=== PATIENT | female | born 1965 | race Caucasian/White ===

== ENCOUNTER → 2017-04-01 | Outpatient (CLI) | payer OTHER ==
[~2017-04-01] MED LIST: CIPRO500 MG PO; CUBICIN500 MG/10 IV; DIOVAN HCT 3201 EAC1 PO; DIOVAN40 MG PO; FORTAMET500 MG PO; GLIPIZIDE ER2.5 MG PO; HYDROXYZINE HCL25 MG PO; LASIX10 MG PO; LASIX20 MG PO; METFORMIN HCL1000 M1 PO; MICRO-K,K-DUR,10 MEQ PO; PROTONIX40 M1 PO; PROTONIX40 MG PO; PROZAC10 M1 PO; PROZAC40 MG PO; SIMVASTATIN20 MG PO; VITAMIN B-6100 MG PO; VITAMIN D250000 UNIT PO; WELCHOL625 MG PO
== END | disposition home or self-care (01) ==
LOC: NUC 13:37
DX: R06.02 Shortness of breath (principal)
CPT/HCPCS: 71020; 78582; A9540; A9567

== ENCOUNTER 2017-12-27 00:29 | Inpatient (IN) | payer OTHER ==
[~2017-12-27] VITALS: Ht 162.6 cm; Wt 187.5 kg
[~2017-12-27 00:29] MED LIST changes: +CYANOCOBALAM1000 MCG PO; -DIOVAN HCT 3201 EAC1 PO; +DIOVAN160 MG PO; -GLIPIZIDE ER2.5 MG PO; +GLIPIZIDE PO; -METFORMIN HCL1000 M1 PO; +METFORMIN HCL500 MG PO; -VITAMIN B-6100 MG PO; +VITAMIN D31000 UNIT PO
[2017-12-27 01:42] LABS: HEMATOCRIT 32.1 % (36.0-46.0); HEMOGLOBIN 9.9 G/DL (11.9-15.5); MCH 31.7 PG (29.0-34.0); MCHC 30.8 G/DL (30.0-36.0); MCV 102.9 FL (83-99); PLATELET COUNT 214 K/uL (156-360); RBC DIS.WIDTH-CV 13.1 % (11.8-14.6); RBC DIS.WIDTH-SD 48.2 % (39-53); RED BLOOD COUNT 3.12 M/uL (3.80-5.20); WHITE BLOOD COUNT 12.6 K/uL (4.1-10.2)
[2017-12-27 01:59] LABS: ALBUMIN 3.8 g/dL (3.2-4.8)
[2017-12-27 02:00] LABS: CHLORIDE 85 mEq/L (99-109); POTASSIUM 3.9 mEq/L (3.7-5.4); SODIUM 142 mEq/L (136-147)
[2017-12-27 02:02] LABS: GLUCOSE 220 mg/dL (70-99); TOTAL PROTEIN 7.3 g/dL (6.4-8.3)
[2017-12-27 02:04] LABS: TOTAL BILIRUBIN 0.4 mg/dL (0.0-1.0)
[2017-12-27 02:05] LABS: ALKALINE PHOSPHATASE 73 IU/L (3-129)
[2017-12-27 02:06] LABS: CREATININE 1.5 mg/dL (0.6-1.3); GFR ESTIMATE (CALCULATED) 39 mL/min/
[2017-12-27 02:07] LABS: AST (GOT) 13 IU/L (2-34); UREA NITROGEN (BUN) 30 mg/dL (9-23)
[2017-12-27 02:08] LABS: ALT (GPT) 17 IU/L (3-49)
[2017-12-27 02:09] LABS: LIPASE 93 U/L (1.0-51.0); TROP-I INTERPRETATION NEGATIVE; TROPONIN-I 0.01 ng/mL (0.0-0.30)
[2017-12-27 02:18] LABS: CARBON DIOXIDE (BICARBONATE) > 40.0 MEQ/L (20-31); VENOUS PCO2 88 mm Hg (41-51)
[2017-12-27 02:19] LABS: CARBON DIOXIDE (BICARBONATE) > 40.0 mEq/L (20-31)
[2017-12-27 04:00] LABS: BASE EXCESS 22.2 mEq/L (-3 to +3); BICARBONATE 53.4 mEq/L (22-26); CARBOXY HGB 1.9 % (0-5); PCO2 99 mm Hg (35-45); PO2 112 mm Hg (80-100); SITE RR; pH 7.34 (7.35-7.45)
[2017-12-27 04:01] LABS: COMMENTS - BLOOD GASES A+C+; DEVICE 840; FI02 60 %; MODE SPONT; PEEP 5 CM/H20; PRES. SUPPORT 10 CM/H2O; TOTAL RESP RATE 16 resp/min
[2017-12-27 10:51] VITALS: BP 125/60
[2017-12-27] MEDS ORDERED: HYDROCHLOROTHIA25 MG PO (14:33)
[2017-12-27] MEDS ORDERED: BYSTOLIC5 MG PO (14:41)
[2017-12-27 16:34] VITALS: BP 127/52
[2017-12-27 20:02] VITALS: BP 151/79
[2017-12-27 23:22] VITALS: BP 116/54
[2017-12-28 03:28] VITALS: BP 115/56
[2017-12-28 06:36] LABS: CHLORIDE 83 MEQ/L (99-109); CREATININE 1.2 MG/DL (0.6-1.3); GFR ESTIMATE (CALCULATED) 50 mL/min/; GLUCOSE 277 mg/dL (70-99); SODIUM 139 MEQ/L (136-147); UREA NITROGEN (BUN) 33 mg/dL (9-23)
[2017-12-28 06:58] LABS: CARBON DIOXIDE (BICARBONATE) > 40.0 MEQ/L (20-31)
[2017-12-28 08:10] VITALS: BP 147/68
[2017-12-28 12:04] VITALS: BP 119/58
[2017-12-28 15:35] VITALS: BP 141/64
[2017-12-28 20:07] VITALS: BP 128/60
[2017-12-28 23:28] VITALS: BP 144/67
[2017-12-29 03:15] VITALS: BP 133/64
[2017-12-29 05:58] LABS: BASOPHIL (%) 0.1 % (0-1); EOSINOPHIL (%) 0.1 % (0-5); HEMATOCRIT 29.6 % (36.0-46.0); HEMOGLOBIN 9.3 G/DL (11.9-15.5); IMMATURE GRANULOCYTE (%) 1.1 % (0.0-0.7); LYMPHOCYTE (%) 4.6 % (15-42); LYMPHOCYTE COUNT 0.6 K/uL (1.0-2.8); MCH 31.1 PG (29.0-34.0); MCHC 31.4 G/DL (30.0-36.0); MONOCYTE (%) 3.3 % (3-12); MONOCYTE COUNT 0.4 K/uL (0-0.8); NEUTROPHIL (%) 90.8 % (45-76); NEUTROPHIL COUNT 11.2 K/uL (1.8-6.4); PLATELET COUNT 223 K/uL (156-360); RBC DIS.WIDTH-CV 12.9 % (11.8-14.6); RBC DIS.WIDTH-SD 46.1 % (39-53); RED BLOOD COUNT 2.99 M/uL (3.80-5.20); WHITE BLOOD COUNT 12.3 K/uL (4.1-10.2)
[2017-12-29 06:00] LABS: CHLORIDE 82 MEQ/L (99-109); CREATININE 1.2 MG/DL (0.6-1.3); GFR ESTIMATE (CALCULATED) 50 mL/min/; GLUCOSE 310 mg/dL (70-99); POTASSIUM 3.9 MEQ/L (3.7-5.4); SODIUM 137 MEQ/L (136-147); UREA NITROGEN (BUN) 41 mg/dL (9-23)
[2017-12-29 06:08] LABS: CARBON DIOXIDE (BICARBONATE) > 40.0 MEQ/L (20-31)
[2017-12-29 07:50] VITALS: BP 132/63
[2017-12-29] MEDS ORDERED: WELCHOL625 MG PO ×2 (11:41→11:42)
[2017-12-29 11:42] VITALS: BP 135/72
[2017-12-29 15:20] VITALS: BP 138/65
[2017-12-29 19:53] VITALS: BP 138/62
[2017-12-29 22:47] VITALS: BP 144/64
[2017-12-30 01:24] VITALS: BP 179/84
[2017-12-30 06:07] LABS: BASOPHIL (%) 0.1 % (0-1); EOSINOPHIL (%) 0 % (0-5); HEMATOCRIT 30.2 % (36.0-46.0); HEMOGLOBIN 9.5 G/DL (11.9-15.5); IMMATURE GRANULOCYTE (%) 1.5 % (0.0-0.7); LYMPHOCYTE (%) 9.1 % (15-42); LYMPHOCYTE COUNT 0.8 K/uL (1.0-2.8); MCH 30.9 PG (29.0-34.0); MCHC 31.5 G/DL (30.0-36.0); MCV 98.4 FL (83-99); MONOCYTE (%) 8.6 % (3-12); MONOCYTE COUNT 0.8 K/uL (0-0.8); NEUTROPHIL (%) 80.7 % (45-76); NEUTROPHIL COUNT 7.5 K/uL (1.8-6.4); PLATELET COUNT 214 K/uL (156-360); RBC DIS.WIDTH-CV 12.7 % (11.8-14.6); RBC DIS.WIDTH-SD 45.7 % (39-53); RED BLOOD COUNT 3.07 M/uL (3.80-5.20); WHITE BLOOD COUNT 9.3 K/uL (4.1-10.2)
[2017-12-30 06:50] LABS: CHLORIDE 81 MEQ/L (99-109); CREATININE 1.2 MG/DL (0.6-1.3); GFR ESTIMATE (CALCULATED) 50 mL/min/; GLUCOSE 256 mg/dL (70-99); POTASSIUM 3.7 MEQ/L (3.7-5.4); SODIUM 137 MEQ/L (136-147); UREA NITROGEN (BUN) 41 mg/dL (9-23)
[2017-12-30 06:51] LABS: CARBON DIOXIDE (BICARBONATE) > 40.0 MEQ/L (20-31)
[2017-12-30 07:10] VITALS: BP 135/63
[2017-12-30 15:02] VITALS: BP 124/65
[2017-12-30 21:47] VITALS: BP 138/74; BP 150/99
[2017-12-30 23:41] VITALS: BP 151/67
[2017-12-31 07:18] VITALS: BP 156/79
[2017-12-31 10:59] VITALS: BP 140/74
[2017-12-31 18:00] VITALS: BP 139/73
[2017-12-31 23:57] VITALS: BP 149/65
[2018-01-01 06:56] LABS: CHLORIDE 85 MEQ/L (99-109); CREATININE 1.2 MG/DL (0.6-1.3); GFR ESTIMATE (CALCULATED) 50 mL/min/; GLUCOSE 198 mg/dL (70-99); POTASSIUM 3.6 MEQ/L (3.7-5.4); SODIUM 139 MEQ/L (136-147); UREA NITROGEN (BUN) 30 mg/dL (9-23)
[2018-01-01 06:57] LABS: CARBON DIOXIDE (BICARBONATE) > 40.0 MEQ/L (20-31)
[2018-01-01 07:29] VITALS: BP 143/72
[2018-01-01 09:54] LABS: BASE EXCESS 24.2 mEq/L (-3 to +3); BICARBONATE 51.9 mEq/L (22-26); COMMENTS - BLOOD GASES +C; DEVICE NC; METHEMOGLOBIN 1.7 % (0-1.5); O2 FLOW 3 L/MIN; PCO2 73 mm Hg (35-45); PO2 63 mm Hg (80-100); SITE LR +A; pH 7.46 (7.35-7.45)
[2018-01-01 09:55] LABS: TOTAL RESP RATE 20 resp/min
[2018-01-01 11:14] VITALS: BP 118/64
[2018-01-01 15:40] VITALS: BP 150/73
[2018-01-01 23:48] VITALS: BP 136/63
[2018-01-02 07:21] VITALS: BP 153/79
[2018-01-02 15:25] VITALS: BP 134/79
[2018-01-02 16:31] LABS: CHLORIDE 86 MEQ/L (99-109); CREATININE 1.4 MG/DL (0.6-1.3); GFR ESTIMATE (CALCULATED) 42 mL/min/; GLUCOSE 247 mg/dL (70-99); POTASSIUM 3.9 MEQ/L (3.7-5.4); SODIUM 134 MEQ/L (136-147); UREA NITROGEN (BUN) 30 mg/dL (9-23)
[2018-01-02 16:32] LABS: CARBON DIOXIDE (BICARBONATE) > 40.0 MEQ/L (20-31)
[2018-01-03 00:28] VITALS: BP 140/65
[2018-01-03 06:35] LABS: BASOPHIL (%) 0.3 % (0-1); EOSINOPHIL (%) 2.8 % (0-5); EOSINOPHIL COUNT 0.3 K/uL (0-0.3); HEMATOCRIT 32.5 % (36.0-46.0); HEMOGLOBIN 10.3 G/DL (11.9-15.5); IMMATURE GRANULOCYTE (%) 2.2 % (0.0-0.7); LYMPHOCYTE (%) 17.2 % (15-42); LYMPHOCYTE COUNT 1.8 K/uL (1.0-2.8); MCH 30.7 PG (29.0-34.0); MCHC 31.7 G/DL (30.0-36.0); MONOCYTE COUNT 0.9 K/uL (0-0.8); NEUTROPHIL (%) 68.5 % (45-76); NEUTROPHIL COUNT 7.2 K/uL (1.8-6.4); PLATELET COUNT 240 K/uL (156-360); RBC DIS.WIDTH-CV 12.9 % (11.8-14.6); RBC DIS.WIDTH-SD 46.1 % (39-53); RED BLOOD COUNT 3.35 M/uL (3.80-5.20); WHITE BLOOD COUNT 10.5 K/uL (4.1-10.2)
[2018-01-03 07:03] LABS: CHLORIDE 88 MEQ/L (99-109); CREATININE 1.3 MG/DL (0.6-1.3); GFR ESTIMATE (CALCULATED) 46 mL/min/; GLUCOSE 162 mg/dL (70-99); MAGNESIUM 2.2 mg/dl (1.3-2.7); POTASSIUM 3.5 MEQ/L (3.7-5.4); SODIUM 138 MEQ/L (136-147); UREA NITROGEN (BUN) 28 mg/dL (9-23)
[2018-01-03 07:04] LABS: CARBON DIOXIDE (BICARBONATE) > 40.0 MEQ/L (20-31)
[2018-01-03 07:50] VITALS: BP 137/64
[2018-01-03] MEDS ORDERED: FUROSEMIDE40 MG PO (10:13)
[2018-01-03] MEDS ORDERED: PREDNISONE20 MG PO (10:14)
[2018-01-03] MEDS ORDERED: JANUVIA100 MG PO (10:14)
[2018-01-03] MEDS ORDERED: GLUCOPHAGE850 MG PO (10:16)
[2018-01-03 16:00] VITALS: BP 122/86
[2018-01-04] VITALS: BP 155/97
[2018-01-04 08:22] VITALS: BP 129/63
[2018-01-04 12:00] VITALS: BP 129/63
== END 2018-01-04 15:08 | disposition home or self-care (01) | DRG 189 ==
LOC: EME → EDBD 00:29 → CANRESERV 08:35 → ENRESERV 08:35 → EDOF 08:36 → 5SOUTH 08:36 → 4EAST 08:36 → ENRESERV 08:44 → EDOF 08:58 → ENRESERV 09:18 → 4EAST 10:33 → ENRESERV 12-29 23:55 → 5SOUTH 12-30 00:42
PROVIDERS: Emergency Medicine; Hospitalist; Internal Medicine; Internal Medicine Cardiovascular Disease; Internal Medicine Pulmonary Disease; Physician Assistant; Student in an Organized Health Care Education/Training Program
PROC: 5A09457 Assistance with Respiratory Ventilation, 24-96 Consecutive Hours, Continuous Positive Airway Pressure (ICD-10-PCS; principal; 2017-12-27)
DX: J96.22 Acute and chronic respiratory failure with hypercapnia (principal); J44.1 Chronic obstructive pulmonary disease with (acute) exacerbation; J96.21 Acute and chronic respiratory failure with hypoxia; G47.33 Obstructive sleep apnea (adult) (pediatric); E87.6 Hypokalemia; D64.9 Anemia, unspecified; E11.65 Type 2 diabetes mellitus with hyperglycemia; E78.5 Hyperlipidemia, unspecified; F40.240 Claustrophobia; K21.9 Gastro-esophageal reflux disease without esophagitis; N28.9 Disorder of kidney and ureter, unspecified; I11.0 Hypertensive heart disease with heart failure; Z87.891 Personal history of nicotine dependence; E66.2 Morbid (severe) obesity with alveolar hypoventilation; I50.33 Acute on chronic diastolic (congestive) heart failure; Z68.45 Body mass index [BMI] 70 or greater, adult; Z79.84 Long term (current) use of oral hypoglycemic drugs; Z79.899 Other long term (current) drug therapy; Z82.3 Family history of stroke; Z80.3 Family history of malignant neoplasm of breast; Z82.49 Family history of ischemic heart disease and other diseases of the circulatory system; Z88.1 Allergy status to other antibiotic agents; Z88.2 Allergy status to sulfonamides; Z88.8 Allergy status to other drugs, medicaments and biological substances; Z99.81 Dependence on supplemental oxygen; Z91.19 Patient's noncompliance with other medical treatment and regimen; J20.9 Acute bronchitis, unspecified
CPT/HCPCS: 36600; 71045; 80048; 80053; 82803; 82948; 83690; 83735; 84484; 85025; 85027; 87502; 87641; 93005; 93306; 94002; 94010; 94640; 94640 76; 94644; 94660; 94667; 94668; 94760; 94799; 99202; 99281; 99285; J0360; J1100; J1650; J1815; J1940; J2920; J2930; J3475; J7512; J7644

== ENCOUNTER 2018-04-05 17:37 | Emergency (ER) | payer OTHER ==
[~2018-04-05] VITALS: Ht 162.6 cm; Wt 193.3 kg
[~2018-04-05 17:37] MED LIST changes: +BYSTOLIC5 MG PO; +FUROSEMIDE40 MG PO; +GLUCOPHAGE850 MG PO; +HYDROCHLOROTHIA25 MG PO; +JANUVIA100 MG PO; +PREDNISONE20 MG PO
[2018-04-05 18:42] LABS: HEMATOCRIT 31.8 % (36.0-46.0); HEMOGLOBIN 9.6 G/DL (11.9-15.5); MCH 29.7 PG (29.0-34.0); MCHC 30.2 G/DL (30.0-36.0); MCV 98.5 FL (83-99); RBC DIS.WIDTH-CV 13.4 % (11.8-14.6); RBC DIS.WIDTH-SD 48.4 % (39-53); RED BLOOD COUNT 3.23 M/uL (3.80-5.20); WHITE BLOOD COUNT 12.3 K/uL (4.1-10.2)
[2018-04-05 18:53] LABS: CHLORIDE 89 mEq/L (99-109); POTASSIUM 3.9 mEq/L (3.7-5.4); SODIUM 142 mEq/L (136-147)
[2018-04-05 18:55] LABS: GLUCOSE 133 mg/dL (70-99)
[2018-04-05 18:59] LABS: CREATININE 0.9 mg/dL (0.6-1.3); GFR ESTIMATE (CALCULATED) > 59 mL/min/
[2018-04-05 19:00] LABS: UREA NITROGEN (BUN) 13 mg/dL (9-23)
[2018-04-05 19:07] LABS: TROP-I INTERPRETATION NEGATIVE; TROPONIN-I 0.01 ng/mL (0.0-0.30)
[2018-04-05] MEDS ORDERED: LEVAQUIN750 MG PO (19:15)
[2018-04-05 19:32] LABS: PLAT.SUFFICIENCY ADEQUATE
[2018-04-05 19:35] LABS: PLATELET COUNT 242 K/uL (156-360)
[2018-04-05 19:42] LABS: CARBON DIOXIDE (BICARBONATE) > 40.0 mEq/L (20-31)
[2018-04-05 22:17] VITALS: BP 101/76
== END 2018-04-05 22:27 | disposition home or self-care (01) ==
LOC: EME 17:37
PROVIDERS: Emergency Medicine
DX: J44.9 Chronic obstructive pulmonary disease, unspecified (principal); Z99.81 Dependence on supplemental oxygen; I45.10 Unspecified right bundle-branch block; Z88.2 Allergy status to sulfonamides; Z88.8 Allergy status to other drugs, medicaments and biological substances; Z87.891 Personal history of nicotine dependence
CPT/HCPCS: 71045; 80048; 84484; 85027; 93005; 99281; 99285